=== PATIENT | male | born 1970 | race Caucasian/White ===

== ENCOUNTER 2018-08-30 14:04 | Emergency (ER) | payer BC ==
--- NOTE | 2018-08-30 14:29 | EDPHY ---
H & P Stated Complaint: swollen left hand. Wednesday hand onto either "snake or twigs" Time Seen by Provider: 08/30/18 14:18 HPI/ROS: CHIEF COMPLAINT: Left hand swelling HISTORY OF PRESENT ILLNESS: 48-year-old male with multiple sclerosis on [place] presents with left hand swelling. 2 days ago he was in [place] and reached into some brush. Onset of pain and swelling after reaching into the brush. Unknown mechanism, such as stuck by thorns or bitten/stung. Gradually increasing swelling of the left hand since then. Tetanus is up-to-date. No fever or chills. ROS: No numbness, weakness, excessive bleeding, syncopal episode, other injury. - Personal History Current Tetanus Diphtheria and Acellular Pertussis (TDAP): Unsure - Medical/Surgical History Hx Asthma: No Hx Chronic Respiratory Disease: No Hx Diabetes: No Hx Cardiac Disease: No Hx Renal Disease: No Hx Cirrhosis: No Hx Alcoholism: No Hx HIV/AIDS: No Hx Splenectomy or Spleen Trauma: No Other PMH: MS - Social History Smoking Status: Current every day smoker - Physical Exam Exam: Alert and oriented, pleasant Extremities: Left hand-scabbed over wounds at the base of the thenar eminence with surrounding swelling and faint erythema of the entire thenar eminence. Minimal tenderness over this area. Skin: As above Neuro: Motor and sensory intact Vascular: Capillary refill brisk distally Constitutional: Initial Vital Signs Temperature (C) 36.4 C 08/30/18 14:06 Heart Rate 89 08/30/18 14:06 Respiratory Rate 18 08/30/18 14:06 Blood Pressure 176/100 H 08/30/18 14:06 O2 Sat (%) 95 08/30/18 14:06 O2 Delivery Mode Room Air Allergies/Adverse Reactions: No Known Allergies Allergy (Unverified 08/30/18 14:10) Home Medications: Medication Instructions Recorded Cephalexin [Keflex (*)] 500 mg PO TID #30 cap 08/30/18 Medical Decision Making - Diagnostics Imaging Results: Hand Xray: NAD, no FB present ED Course/Re-evaluation: This patient presents with left hand swelling secondary to a bite/sting vs stuck by thorn. Exam concerning for possible early cellulitis. 3 wounds present, irregularly spaced, not in a bite-like pattern. Xray is unremarkable, no FB. Keflex 500mg orally given. A thumb spica splint was placed. The patient was strongly encouraged not to use his hand and to elevate whenever possible. f/u in 2 days for recheck. Will return for worsening symptoms or any concerns. Differential Diagnosis: cellulitis, retained FB, abscess, allergic rxn - Data Points Medications Given: Discontinued Medications Cephalexin HCl (Keflex) 500 mg PO EDNOW ONE PRN Reason: Protocol Stop: 08/30/18 14:32 Last Admin: 08/30/18 14:38 Dose: 500 mg Departure - Departure Disposition: Home, Routine, Self-Care Clinical Impression: Swelling of left hand Condition: Fair Instructions: Cellulitis (ED) Additional Instructions: Keep hand elevated whenever possible. Wear the splint to remind you not to use the hand. Return in 2 days for recheck. Return sooner for fever, increasing pain, swelling or redness. Referrals: Luz Lozano MD [Medical Doctor] - As per Instructions Prescriptions: Cephalexin [Keflex (*)] 500 mg PO TID #30 cap
[2018-08-30] MEDS ORDERED: CEPHALEXIN 500 MG CAP PO ONE (14:31)
[2018-08-30 15:06] VITALS: BP 147/57
== END 2018-08-30 15:06 | disposition home or self-care (01) ==
DX: M79.89 Other specified soft tissue disorders (principal); G35 Multiple sclerosis; V00-Y99 External causes of morbidity; Y92.828 Other wilderness area as the place of occurrence of the external cause

== ENCOUNTER 2018-09-01 13:12 | Emergency (ER) | payer BC ==
[2018-09-01 13:20] VITALS: BP 154/100
--- NOTE | 2018-09-01 13:34 | EDPHY ---
H & P Time Seen by Provider: 09/01/18 13:22 HPI/ROS: CHIEF COMPLAINT: Wound check left hand HISTORY OF PRESENT ILLNESS: 48-year-old male history of multiple sclerosis, seen the ER 2 days ago for swelling to the left thenar eminence from a hurtado, possible early cellulitis, Keflex initiated at that time recommend 2 day recheck. He has been taking medication as prescribed. He notes significant improvement in symptoms, increase in range of motion, decrease in pain, decrease in erythema. No new symptoms. No fever no chills. No flu-like symptoms. PRIMARY CARE PROVIDER: REVIEW OF SYSTEMS: 10 systems reviewed and are negative with exception of illness mentioned in the history of present illness PHYSICAL EXAM (Prior to examination, patient consented to physical exam, hands were washed and my usual and customary physical exam procedures followed) 1) GENERAL: Well-developed, well-nourished, alert and oriented. Appears to be in no acute distress. 2) HEAD: Normocephalic 3) HEENT: sclera anicteric 4) LUNGS: Breathing comfortably. 5) SKIN: Puncture wound x3 to left thenar eminence noted with no evidence of acute infection, no erythema, no induration. Soft compartments. Opposition intact and pain free. Full range of motion which is pain free. No lymphangitic streaking. Negative kanavel to all digits. Smoking Status: Current every day smoker Constitutional: Initial Vital Signs Temperature (C) 36.5 C 09/01/18 13:14 Heart Rate 88 09/01/18 13:14 Respiratory Rate 16 09/01/18 13:14 Blood Pressure 154/100 H 09/01/18 13:14 O2 Sat (%) 95 09/01/18 13:14 O2 Delivery Mode Room Air Allergies/Adverse Reactions: No Known Allergies Allergy (Unverified 08/30/18 14:10) Home Medications: Medication Instructions Recorded Cephalexin [Keflex (*)] 500 mg PO TID #30 cap 08/30/18 MDM/Departure - MDM ED Course/Re-evaluation: 1:30 p.m.: I reviewed the patient's old medical records. The wound on his left hand is granulating appropriately. He states significant improvement in symptoms, increase in range of motion. No lymphangitic streaking. Doubt deep space infection, doubt infectious tenosynovitis. At this time I think the patient can be discharged. Recommend he continue his antibiotics until finished. He has his next infusion of MS medication on Wednesday (today is ). Recommend he keep this appointment. He feels comfortable being discharged. Patient feels comfortable being discharged. All questions and concerns addressed by myself. Patient given my usual and customary discharge precautions and instructions regarding their clinical impression. Care of patient under supervision of secondary supervising physician Dr Bell . - Depart Disposition: Home, Routine, Self-Care Clinical Impression: Infected hand Condition: Good Instructions: Cellulitis (ED) Additional Instructions: Return to the ER if you develop redness, swelling, discharge, warmth to the wound, red streaks going up your arm or any other symptoms that concern you. Your left hand wound is healing well. Keep taking your antibiotic until finished. I recommend you keep your appointment on Wednesday with your infusion clinic. Referrals: Tulio Hunter MD [Medical Doctor] - 5-7 days, call for appt.
== END 2018-09-01 13:45 | disposition home or self-care (01) ==
DX: L08.9 Local infection of the skin and subcutaneous tissue, unspecified (principal); G35 Multiple sclerosis; F17.200 Nicotine dependence, unspecified, uncomplicated